=== PATIENT | male | born 1950 | race Caucasian/White ===

== ENCOUNTER → 2023-10-09 14:03 | Outpatient (REF) | payer BC, SELFPAY | LOC: HWRAD 14:03 | PROVIDERS: ATTENDING PHYSICIAN Otolaryngology; FAMILY PHYSICIAN Family Medicine | DX: H04.201 Unspecified epiphora, right side (principal) | CPT/HCPCS: 70486 ==

== ENCOUNTER 2024-02-20 19:32 | Emergency (ER) | payer BC, SELFPAY ==
[2024-02-20] VITALS (7 sets, daily range): BP systolic 88–121; BP diastolic 53–79
[2024-02-20 20:08] LABS: % Basophils 0.2 % (0-2); % Eosinophils 0.1 % (0-6); % Immature Granulocytes 0.4 % (0-0.5); % Lymphocytes 5.9 % (20.5-51.1); % Monocytes 7.3 % (1.7-9.3); % Neutrophils 86.1 % (42.2-75.2); Absolute Immature Granulocytes 0.1 10^3/uL (0-0.05); Absolute Lymphocytes 1.1 10^3/uL (1.2-3.4); Absolute Monocytes 1.3 10^3/uL (0.1-0.6); Absolute Neutrophils 15.7 10^3/uL (1.4-6.5); Hematocrit 36.2 % (39.0-52.0); Mean Corp Hgb Conc. 35.9 g/dL (33.0-37.0); Mean Corpuscular Hgb 33.9 pg (27.0-31.0); Mean Corpuscular Volume 94.5 fL (80.0-94.0); Mean Platelet Volume 11.2 fL (7.4-10.4); Nucleated Red Blood Cells % 0 % (-); Platelet Count 103 10^3/uL (130-400); Red Blood Cell Count 3.83 10^6/uL (4.70-6.10); Red Cell Dist. Width 12.2 % (11.5-14.5); White Blood Cell Count 18.2 10^3/uL (4.8-10.8)
[2024-02-20 20:15] LABS: ALT (SGPT) 37 U/L (0-50); AST (SGOT) 40 U/L (17-59); Albumin 3.8 g/dl (3.5-5.0); Alkaline Phosphatase 80 U/L (38-126); Blood Urea Nitrogen 36 mg/dl (9-20); Carbon Dioxide 20 mmol/L (22-30); Chloride 101 mmol/L (98-107); Glucose 113 mg/dl (70-99); Potassium 4.3 mmol/L (3.5-5.1); Sodium 134 mmol/L (135-145); Total Protein 5.7 g/dl (6.3-8.2); eGFR 45.21
[2024-02-20 20:23] LABS: NT-proBNP 10900 pg/ml
--- NOTE | 2024-02-20 20:36 | ED.GENMED ---
History of Present Illness
General
Chief Complaint: Weakness
Source: patient
Exam Limitations: none
Time Seen by Provider: 02/20/24 20:25
History of Present Illness
History of Present Illness:
See MDM
Past History
Past History
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
ED Past Surgical History: Other (port-a-cath)
Social History
Tobacco: Non-smoker
Alcohol: Occasional
Personal:
Living: with family
Employment: Employed
Family History
Family History: Other (noncontributory)
Phy Exam
Physical Exam
Physical Exam:
See MDM
Course
Orders/Labs/Results
Orders:
Orders
02/20/24 19:40
Electrocardiogram (*1) Urgent
Reason for Study: Fatigue / Weakness
EKG- Treatment ONCE
02/20/24 19:48
Complete Blood Count/With Diff Urgent
Comprehensive Metabolic Panel Urgent
NT-proBNP Urgent
02/20/24 20:34
CR Chest - 2 Views Urgent
Comment:
Reason For Exam: Weakness and fevers
02/20/24 20:45
COVID-19 Antigen Urgent
Source: Nasal Swab
Lactic Acid Q4H
Comment: CANCEL 2nd LACTIC ACID IF 1st LACTIC ACID IS LESS THAN 2
02/20/24 21:07
Urinalysis Reflex To Culture Urgent
Date Specimen was Collected: 02/20/24
Time Specimen was Collected: 21:06
02/20/24 21:59
Azithromycin [Zithromax] 500 mg PO NOW STA
Doxycycline [Vibramycin] 100 mg PO NOW STA
02/21/24 00:45
Lactic Acid Q4H
Comment: CANCEL 2nd LACTIC ACID IF 1st LACTIC ACID IS LESS THAN 2
Abnormal Lab Results
02/20/24 02/20/24
19:48 21:07
WBC 18.2 H 10^3/uL
(4.8-10.8)
RBC 3.83 L 10^6/uL
(4.70-6.10)
Hct 36.2 L %
(39.0-52.0)
MCV 94.5 H fL
(80.0-94.0)
MCH 33.9 H pg
(27.0-31.0)
Plt Count 103 L 10^3/uL
(130-400)
MPV 11.2 H fL
(7.4-10.4)
Abs Immat Gran (auto) 0.1 H 10^3/uL
(0-0.05)
Absolute Neuts (auto) 15.7 H 10^3/uL
(1.4-6.5)
Absolute Lymphs (auto) 1.1 L 10^3/uL
(1.2-3.4)
Absolute Monos (auto) 1.3 H 10^3/uL
(0.1-0.6)
Neutrophils % 86.1 H %
(42.2-75.2)
Lymphocytes % 5.9 L %
(20.5-51.1)
Sodium 134 L mmol/L
(135-145)
Carbon Dioxide 20 L mmol/L
(22-30)
BUN 36 H mg/dl
(9-20)
Creatinine 1.6 H mg/dL
(0.7-1.3)
Glucose 113 H mg/dl
(70-99)
Total Protein 5.7 L g/dl
(6.3-8.2)
Urine Glucose 3+ A
(Negative)
02/20/24 19:48
02/20/24 19:48
Vital Signs
Initial and Last Documented VS:
Initial Vital Signs
Temp Pulse Resp BP Pulse Ox
99.8 F 100 18 88/65 96
02/20/24 19:34 02/20/24 19:34 02/20/24 19:34 02/20/24 19:34 02/20/24 19:34
Last Documented Vital Signs
Temp Pulse Resp BP Pulse Ox
99.8 F 99 32 121/55 96
02/20/24 19:34 02/20/24 20:23 02/20/24 20:23 02/20/24 20:23 02/20/24 20:05
MDM/Problems Addressed
Differential Diagnosis Includes:
HPI and MDM Narrative:
73-year-old male presenting with generalized weakness and intermittent fevers. Due to his prior cancer treatments, he has a history of CHF. He has chronically low blood pressure. Due to his persistent low blood pressure, his rad technologist
suggested that he switch his Bumex to every other day rather than daily. Patient just got his COVID and flu shot few days ago. He started with chills and fevers yesterday. Patient is currently afebrile in the emergency department. He complains
of mild shortness of breath but denies leg swelling.
Blood work was done prior to my evaluation. He has leukocytosis which is likely reactive from his recent vaccinations. His BNP is elevated from baseline but he is not requiring supplemental oxygen and he is not tachypneic. His creatinine is 1.6
which is at baseline
Will continue the infectious workup with chest x-ray, lactic acid and urinalysis. I long discussion with patient and at bedside indicating that if his workup is negative, it may be reactive from the vaccines. With that in mind, both patient
and are comfortable going home. Will continue to monitor and search for infectious causes
Physical exam
General: Mildly weak and fatigued
HEENT: protecting airway
Neck: appears supple
CV: No evidence of cyanosis. Regular rate and rhythm
Resp: No accessory muscle use. Lungs clear
Abd: Non-distended and nontender
Extremities: No deformities. No leg edema
Neuro: alert
Psych: Normal affect
Skin: Intact
Problems Addressed including Acute and Chronic Conditions affecting care:
1. Generalized weakness and fatigue
Acuity: acute
Prognosis: stable
Details: Likely in the setting of reaction from a recent COVID and influenza vaccination.
2. Intermittent fevers
Acuity: acute
Prognosis: stable
Details: Likely immune response from recent vaccines. Will obtain chest x-ray and urinalysis
3. Pneumonia
Acuity: acute
Prognosis: stable
Details: Will start doxycycline and azithromycin
Updates
Chest x-ray concerning for right upper lobe pneumonia. We discussed admission versus discharge and patient and feel comfortable going home. Will start doxycycline and azithromycin. Will give first dose now. Patient given a CD of the chest
x-ray and print out of labs
Although less likely, radiology does indicate that an underlying mass cannot be ruled out on the chest x-ray. This was discussed with the patient and and we discussed further testing as an outpatient
Differential Diagnosis (but not limited to): Pneumonia, UTI, immune response to vaccines
Testing considered: Blood culture
Drug therapy (if applicable): OTC meds, please see d/c instruction regarding Rx drugs
Amount and/or Complexity of Data Reviewed
Clinical info obtained from: Patient. states he is more tired than normal
External data reviewed: N/A
Labs I independently reviewed (but not limited to): Leukocytosis. Baseline CKD
Radiology: X-ray independently reviewed: Chest x-ray shows right upper lobe pneumonia
Pulse Ox: not hypoxic
EKG independently reviewed: Paced rhythm, left axis, no STEMI
Information Systems Security Officer: Paced rhythm
Critical Care: N/A
Risk of Complication:
Social Determinants of health: Good social support
Discussed with other providers: N/A
Escalation of Care includes Admit/Obs: After being observed in the Emergency Department, pt stable for discharge.
Occasional wrong word or 'sound a like' substitutions may have occurred due to the inherent limitations of voice recognition software. Read the chart carefully and recognize, using context, where substitutions have occurred.
*Critical Care Note
Total Time (30-74mins, 75-104mins- exclusive of procedures): Not Applicable
ED Attending Note
-
Portions of this chart may have been created with voice recognition software.� Occasional wrong word or��sound alike� substitutions may have occurred due to the inherent limitations of voice recognition software.
Discharge Plan
Departure
Patient Disposition: Home (Routine Discharge)
Date of Disposition: 02/20/24
Time of Disposition: 22:03
Patient with high blood pressure during this ER visit?: No
Discharge Problem:
PNA (pneumonia)
Instructions: Pneumonia
Prescriptions:
New
doxycycline hyclate 100 mg capsule
100 mg PO BID Qty: 20 0RF
azithromycin 250 mg tablet
250 mg PO DAILY 4 Days Qty: 4 0RF
No Action
Myrbetriq 50 MG tablet extended release 24 hr
50 mg PO DAILY
Cosamin DS (with manganese) 1 EACH capsule
1 ea PO DAILY
cetirizine 10 MG tablet
10 mg PO DAILY
clopidogrel 75 MG tablet
75 mg PO DAILY Qty: 30 0RF
fluticasone propionate 1 SPRAY spray,suspension
2 spray intranasal DAILY
cholecalciferol (vitamin D3) [Vitamin D3] 2,000 UNIT capsule
2,000 unit PO DAILY
multivitamin Tablet
1 tab PO DAILY
carvedilol [Coreg] 12.5 mg Tablet
12.5 mg PO BID
psyllium Packet
1 packet PO DAILY
spironolactone 25 mg Tablet
12.5 mg PO MOWEFR
lisinopril 2.5 mg Tablet
2.5 mg PO HS
colestipol 1 gram Tablet
1 g PO BID
folic acid-vit B6-vit B12 2.2-25-1 mg Tablet
1 tab PO DAILY
Probiotic 3 billion cell Capsule
3,000 mmu cells PO DAILY
Jardiance 10 mg Tablet
10 mg PO DAILY
atorvastatin 40 MG tablet
80 mg PO DAILY
bumetanide 0.5 MG tablet
0.5 mg PO MOWEFR
phenazopyridine 200 mg tablet
200 mg PO TID PRN (Reason: urinary irritation) Qty: 30 2RF
Referrals:
Leigh Choi MD [Family Provider] -
Activity Restrictions/Additional Instructions:
Please return for any worsening symptoms.
You may return at any time if you have further concerns.
Please follow up with your doctor at the first available appointment, preferably this week.
The radiologist had indicate that the chest x-ray is more consistent with pneumonia rather than a mass but indicated that a mass cannot be completely ruled out. His symptoms are more likely related to infection. Please talk to your doctor about
further imaging as needed. It may be worth repeating the chest x-ray after symptoms resolve.
Thank you for choosing [facility].
Interventions
Interventions:
*Risk Screen - Suicide Last Done: 02/20/24 19:34
*General Assessment Last Done: 02/20/24 19:34
*Neglect/Abuse Screening Last Done: 02/20/24 19:34
ED- Cardiac Assessment Last Done: 02/20/24 20:05
ED- Neurological Assessment Last Done: 02/20/24 20:05
ED- Pulmonary Assessment Last Done: 02/20/24 20:05
Discharge Date and Time
Print Language: BURUNDIAN
[2024-02-20 21:03] LABS: COVID-19 Antigen Negative (Negative); Lactic Acid 0.7 mmol/L (0.7-2.0)
[2024-02-20 21:18] LABS: Urine Albumin Negative (Neg - Trace); Urine Bilirubin Negative (Negative); Urine Character Clear (Clear); Urine Color Yellow; Urine Glucose 3+ (Negative); Urine Ketone Negative (Negative); Urine Leukocyte Negative (Negative); Urine Nitrite Negative (Negative); Urine Occult Blood Negative (Negative); Urine Urobilinogen Negative (Neg - 1+)
[2024-02-20] MEDS: VIBRAMYCIN 100 MG PO (22:07)
[2024-02-20] MEDS: ZITHROMAX 500 MG PO (22:07)
== END 2024-02-20 22:20 | disposition home or self-care (01) ==
LOC: EMR 19:32
PROVIDERS: EMERGENCY PHYSICIAN Student in an Organized Health Care Education/Training Program; FAMILY PHYSICIAN Family Medicine
DX: J18.9 Pneumonia, unspecified organism (principal)
CPT/HCPCS: 99285; 71046; 80053; 81003; 83605; 83880; 85025; 87811; 93005

== ENCOUNTER → 2024-04-15 09:31 | Outpatient (REF) | payer BC, SELFPAY | LOC: HWRAD 09:31 | PROVIDERS: ATTENDING PHYSICIAN Family Medicine | DX: J18.9 Pneumonia, unspecified organism (principal) | CPT/HCPCS: 71046 ==

== ENCOUNTER → 2024-07-02 10:14 | Outpatient (REF) | payer BC, SELFPAY | LOC: HWRCS 10:14 | PROVIDERS: ATTENDING PHYSICIAN Internal Medicine Cardiovascular Disease; FAMILY PHYSICIAN Family Medicine | DX: I50.20 Unspecified systolic (congestive) heart failure (principal) | CPT/HCPCS: 93306 ==

== ENCOUNTER → 2024-10-09 09:11 | Outpatient (REF) | payer BC, SELFPAY | LOC: HWRAD 09:11 | PROVIDERS: ATTENDING PHYSICIAN Physician Assistant Medical | DX: R05.9 Cough, unspecified (principal); R50.9 Fever, unspecified; R68.89 Other general symptoms and signs; D84.9 Immunodeficiency, unspecified | CPT/HCPCS: 71046 ==

== ENCOUNTER → 2025-04-06 12:27 | Outpatient (REF) | payer BC, SELFPAY | LOC: PET 12:27 | PROVIDERS: ATTENDING PHYSICIAN Internal Medicine Cardiovascular Disease | DX: I50.20 Unspecified systolic (congestive) heart failure (principal); R06.09 Other forms of dyspnea | CPT/HCPCS: 78431; A9555; J2785 ==

== ENCOUNTER 2025-06-05 15:37 | Emergency (ER) | payer BC, SELFPAY ==
[2025-06-05 15:37] VITALS: BMI 26.6
[2025-06-05 15:42] VITALS: BP 150/78
[2025-06-05 16:19] LABS: Hematocrit 37.4 % (39.0-52.0); Hemoglobin 12.5 g/dL (13.0-18.0); Mean Corp Hgb Conc. 33.4 g/dL (33.0-37.0); Mean Corpuscular Volume 100.0 fL (80.0-94.0); Nucleated Red Blood Cells % 0 % (-); Platelet Count 109 10^3/uL (130-400); Red Cell Dist. Width 13.2 % (11.5-14.5)
[2025-06-05 16:33] LABS: COVID-19 Antigen Negative (Negative)
[2025-06-05 16:51] LABS: ALT (SGPT) 30 U/L (0-50); AST (SGOT) 28 U/L (17-59); Albumin 4.3 g/dl (3.5-5.0); Alkaline Phosphatase 96 U/L (38-126); Blood Urea Nitrogen 32 mg/dl (9-20); Calcium 9.1 mg/dl (8.4-10.2); Carbon Dioxide 27 mmol/L (22-30); Chloride 101 mmol/L (98-107); Estimated Creatinine Clearance 43 ml/min; Glucose 116 mg/dl (70-99); Potassium 4.8 mmol/L (3.5-5.1); Sodium 135 mmol/L (135-145); Total Protein 6.7 g/dl (6.3-8.2); eGFR 48.25
--- NOTE | 2025-06-05 17:18 | ED.GENMED ---
History of Present Illness
General
Chief Complaint: Cold/Flu/URI Symptoms
Time Seen by Provider: 06/05/25 15:49
History of Present Illness
History of Present Illness:
75-year-old male presents to the emergency department for ration of cough, fever, and for the past 2 to 3 days. Notes purulent sputum as well as rhinorrhea. No nausea, vomiting, or diarrhea. No ill contacts at home. History of CHF with depressed
ejection fraction and chronic kidney disease. Also history of mantle cell lymphoma status post chemo and stem cell transplant in 2017
Past History
Past History
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
ED Past Surgical History: Other (port-a-cath)
Social History
Tobacco: Non-smoker
Alcohol: Occasional
Personal:
Living: with family
Employment: Employed
Family History
Family History: Other (noncontributory)
Review of Systems
Review of Systems
Allergies reviewed?: Yes
All Other Systems: ROS reviewed and negative except as documented in HPI and ROS
Phy Exam
Physical Exam
Physical Exam:
GEN: Well appearing, NAD, WDWN
HEENT: Oral mucosa moist, no scleral icterus
Cardiac: Regular rate and rhythm, no murmurs
Lung: No respiratory distress, no tachypnea, lungs clear to auscultation
MSK: No gross deformity or injuries
Skin: Good color, no pallor or jaundice, no rashes
Neuro: AO x3, moves all extremities freely
Psych: Calm, cooperative
Course
Orders/Labs/Results
Orders:
Orders
06/05/25 16:04
CR Chest - 2 Views Urgent
Comment:
Reason For Exam: cough, fever
06/05/25 16:07
COVID-19 Antigen Urgent
Source: Nasal Swab
Complete Blood Count/With Diff Urgent
Comprehensive Metabolic Panel Urgent
Influenza A+B Rapid Molecular Urgent
MARLON Source: Nasal Swab
Specimen Description:
Abnormal Lab Results
06/05/25
16:07
WBC 11.0 H 10^3/uL
(4.8-10.8)
RBC 3.74 L 10^6/uL
(4.70-6.10)
Hgb 12.5 L g/dL
(13.0-18.0)
Hct 37.4 L %
(39.0-52.0)
MCV 100.0 H fL
(80.0-94.0)
MCH 33.4 H pg
(27.0-31.0)
Plt Count 109 L 10^3/uL
(130-400)
MPV 10.5 H fL
(7.4-10.4)
Absolute Neuts (auto) 8.6 H 10^3/uL
(1.4-6.5)
Absolute Monos (auto) 1.0 H 10^3/uL
(0.1-0.6)
Neutrophils % 77.7 H %
(42.2-75.2)
Lymphocytes % 11.8 L %
(20.5-51.1)
BUN 32 H mg/dl
(9-20)
Creatinine 1.5 H mg/dL
(0.7-1.3)
Glucose 116 H mg/dl
(70-99)
06/05/25 16:07
06/05/25 16:07
Vital Signs
Initial and Last Documented VS:
Initial Vital Signs
Temp Pulse Resp Pulse Ox
98.5 F 114 22 97
06/05/25 15:38 06/05/25 15:38 06/05/25 15:38 06/05/25 15:38
Last Documented Vital Signs
Temp Pulse Resp BP Pulse Ox
98.5 F 114 22 150/78 95
06/05/25 15:38 06/05/25 15:38 06/05/25 15:38 06/05/25 15:42 06/05/25 17:24
MDM/Problems Addressed
MDM/Problems Addressed:
Patient is clinically well with no signs of respiratory distress. Given negative testing and his history of CKD as well as malignancy status post stem cell transplant treatment empirically for pneumonia although chest x-ray is clear
*Pulse Oximetry
SaO2: 100
Oxygen Mode of Delivery: Room air
Patient hypoxic: no
*Critical Care Note
Total Time (30-74mins, 75-104mins- exclusive of procedures): Not Applicable
ED Attending Note
-
Portions of this chart may have been created with voice recognition software.� Occasional wrong word or��sound alike� substitutions may have occurred due to the inherent limitations of voice recognition software.
Discharge Plan
Departure
Patient Disposition: Home (Routine Discharge)
Date of Disposition: 06/05/25
Time of Disposition: 17:18
Patient with high blood pressure during this ER visit?: No
Discharge Problem:
Community acquired pneumonia
Instructions: Pneumonia in adults - ED (DC)
Prescriptions:
New
doxycycline monohydrate 100 mg capsule
100 mg PO BID 5 Days Qty: 10 0RF
No Action
Myrbetriq 50 MG tablet extended release 24 hr
50 mg PO DAILY
Cosamin DS (with manganese) 1 EACH capsule
1 ea PO DAILY
cetirizine 10 MG tablet
10 mg PO DAILY
clopidogrel 75 MG tablet
75 mg PO DAILY Qty: 30 0RF
fluticasone propionate 1 SPRAY spray,suspension
2 spray intranasal DAILY
cholecalciferol (vitamin D3) [Vitamin D3] 2,000 UNIT capsule
2,000 unit PO DAILY
multivitamin Tablet
1 tab PO DAILY
carvedilol [Coreg] 12.5 mg Tablet
12.5 mg PO BID
psyllium Packet
1 packet PO DAILY
spironolactone 25 mg Tablet
12.5 mg PO MOWEFR
lisinopril 2.5 mg Tablet
2.5 mg PO HS
colestipol 1 gram Tablet
1 g PO BID
folic acid-vit B6-vit B12 2.2-25-1 mg Tablet
1 tab PO DAILY
Probiotic 3 billion cell Capsule
3,000 mmu cells PO DAILY
Jardiance 10 mg Tablet
10 mg PO DAILY
atorvastatin 40 MG tablet
80 mg PO DAILY
bumetanide 0.5 MG tablet
0.5 mg PO MOWEFR
phenazopyridine 200 mg tablet
200 mg PO TID PRN (Reason: urinary irritation) Qty: 30 2RF
doxycycline hyclate 100 mg capsule
100 mg PO BID Qty: 20 0RF
azithromycin 250 mg tablet
250 mg PO DAILY 4 Days Qty: 4 0RF
Referrals:
Leigh Choi MD [Family Provider, Family Practice]
Interventions
Interventions:
*General Assessment Last Done: 06/05/25 15:40
*Neglect/Abuse Screening Last Done: 06/05/25 15:40
*ED COVID-19 Vaccine History Last Done: 06/05/25 15:40
*ED Influenza Vaccine History Last Done: 06/05/25 15:40
[facility] Fall Risk Assessment Tool Last Done: 06/05/25 15:37
*Risk Screen - Suicide (C-SSRS) Last Done: 06/05/25 15:40
*Nursing Disposition Last Done: 06/05/25 17:24
ED- Pulmonary Assessment Last Done: 06/05/25 16:14
Discharge Date and Time
Discharge Date/Time: 06/05/25 17:25
Print Language: NEPALESE
== END 2025-06-05 17:25 | disposition home or self-care (01) ==
LOC: EMR 15:37
PROVIDERS: Physician Assistant; EMERGENCY PHYSICIAN Student in an Organized Health Care Education/Training Program; FAMILY PHYSICIAN Family Medicine
DX: J18.9 Pneumonia, unspecified organism (principal); I13.0 Hypertensive heart and chronic kidney disease with heart failure and stage 1 through stage 4 chronic kidney disease, or unspecified chronic kidney disease; I50.9 Heart failure, unspecified; N18.9 Chronic kidney disease, unspecified; Z85.72 Personal history of non-Hodgkin lymphomas; Z92.21 Personal history of antineoplastic chemotherapy; Z94.84 Stem cells transplant status; Z11.52 Encounter for screening for COVID-19
CPT/HCPCS: 99284; 71046; 80053; 85025; 87502; 87811